=== PATIENT | female | born 1975 | race Caucasian/White ===

== ENCOUNTER 2022-02-16 07:41 | Emergency (ER) | payer OTHER ==
[2022-02-16] MEDS ORDERED: Zofran 4 MG/2 ML VIAL IV ONE (07:55)
[2022-02-16] MEDS ORDERED: Sodium Chloride 0.9% 1000 ML 1,000 ML IV STA (07:55)
--- NOTE | 2022-02-16 08:04 | ERPHSYRPT ---
- History of Present Illness Time Seen by Provider: 02/16/22 08:00 Historian: patient Exam Limitations: no limitations Physician History: Patient is a 46-year-old female who started with nausea vomiting and abdominal pain yesterday. She does have a history of Crohn's disease but states this is not like previous episodes of Crohn's. She has not had diarrhea with this i nfection is only had 2 stools in the last 48 hours. She has vomited 5-6 times. She also reports fever chills and sweats. She has not had the COVID-vaccine her gallbladder and appendix are out. She also has had a resection of about a foot of the small bowel and 7 inches of the colon for her Crohn's disease. Her pain is generalized. Timing/Duration: yesterday Activities at Onset: none Quality: cramping, fullness Abdominal Pain Onset Location: generalized abdomen Pain Radiation: no radiation Severity of Pain-Max: moderate Severity of Pain-Current: moderate Modifying Factors: Improves With: vomiting Associated Symptoms: diaphoresis, fever/chills, nausea, vomiting, No diarrhea Previous symptoms: same symptoms as today Allergies/Adverse Reactions: latex Allergy (Verified 02/16/22 08:03) ustekinumab [From Stelara] Allergy (Verified 02/16/22 08:03) Home Medications: Budesonide [Budesonide EC] 3 mg PO UD 02/16/22 [History] Certolizumab Pegol [Cimzia] 400 mg SQ UD 02/16/22 [History] - Review of Systems Constitutional: Fever, Chills Eyes: No Symptoms Ears, Nose, & Throat: No Symptoms Respiratory: No Cough, No Dyspnea Cardiac: No Chest Pain, No Edema, No Syncope Abdominal/Gastrointestinal: Abdominal Pain, Nausea, Vomiting, No Diarrhea Genitourinary Symptoms: No Dysuria Musculoskeletal: No Back Pain, No Neck Pain Skin: No Rash Neurological: No Dizziness, No Focal Weakness, No Sensory Changes Psychological: No Symptoms Endocrine: No Symptoms All Other Systems: Reviewed and Negative - Nursing Vital Signs Nursing Vital Signs: Initial Vital Signs Temperature 97.4 F 02/16/22 07:45 Pulse Rate 121 H 02/16/22 07:45 Blood Pressure 118/94 02/16/22 07:45 O2 Sat by Pulse Oximetry 99 02/16/22 07:45 Pain Scale Pain Intensity 6 - Physical Exam General Appearance: mild distress, alert Eye Exam: PERRL/EOMI, eyes nml inspection Ears, Nose, Throat Exam: normal ENT inspection, pharynx normal, moist mucous membranes Neck Exam: normal inspection, non-tender, supple, full range of motion Respiratory Exam: normal breath sounds, lungs clear, No respiratory distress Cardiovascular Exam: regular rate/rhythm, normal heart sounds Gastrointestinal/Abdomen Exam: tenderness (Generalized tenderness), distention, guarding, No mass Pelvic Exam: not done Rectal Exam: deferred Back Exam: normal inspection, normal range of motion, No CVA tenderness, No vert ebral tenderness Extremity Exam: normal inspection, normal range of motion, pelvis stable Neurologic Exam: alert, oriented x 3, cooperative, normal mood/affect, nml cerebellar function, sensation nml, No motor deficits Skin Exam: normal color, warm, dry SpO2 Interpretation: normal SpO2: 100 O2 Delivery: Room Air - Course Nursing assessment & vital signs reviewed: Yes EKG Interpreted by Me: RATE (92), Sinus Rhythm, NORMAL AXIS, NORMAL INTERVALS, NORMAL QRS, NORMAL ST-T - Radiology Exams Chest X-ray Interpretation: Negative - CT Exams Abdomen/Pelvis CT Interpretation: Other (Fluid distended small bowel loops with wall thickening and fluid favoring enteritis Crohn's disease also offered her clinical consideration given the patient history diffuse colonic diarrhea.) Ordered Tests: Active Orders 24 hr Category Date Time Status EKG-ER Only STAT Care 02/16/22 07:55 Active IV Insertion STAT Care 02/16/22 07:55 Active ABDOMEN AND PELVIS W/0 CONTRAS [CT] Stat Exams 02/16/22 07:56 Completed CHEST 1 VIEW (PORTABLE) Stat Exams 02/16/22 07:56 Completed AMYLASE Stat Lab 02/16/22 08:02 Completed CBC W DIFF Stat Lab 02/16/22 08:02 Completed CMP Stat Lab 02/16/22 08:02 Completed CULTURE,URINE Stat Lab 02/16/22 08:02 Received HCG,QUALITATIVE URINE Stat Lab 02/16/22 08:02 Completed LIPASE Stat Lab 02/16/22 08:02 Completed Lactic Acid Stat Lab 02/16/22 08:05 Completed Manual Differential NC Stat Lab 02/16/22 08:02 Completed PROTIME WITH INR Stat Lab 02/16/22 08:02 Completed TROPONIN Q3H Lab 02/16/22 08:02 Completed TROPONIN Q3H Lab 02/16/22 11:00 Ordered TROPONIN Q3H Lab 02/16/22 14:00 Ordered TROPONIN Q3H Lab 02/16/22 17:00 Ordered TROPONIN Q3H Lab 02/16/22 20:00 Ordered UA W/RFX CULTURE Stat Lab 02/16/22 08:02 Completed Medication Summary Discontinued Medications Generic Name Dose Route Start Last Admin Trade Name Anna PRN Reason Stop Dose Admin Sodium Chloride 1,000 mls @ 999 mls/hr 02/16/22 07:55 02/16/22 09:08 Sodium Chloride 0.9% 1000 Ml IV 02/16/22 08:55 Infused .Q1H1M STA Infusion Sodium Chloride Confirm 02/16/22 08:05 Sodium Chloride 0.9% 1000 Ml Administered 02/16/22 08:06 Dose 1,000 mls @ ud .ROUTE .STK-MED ONE Ondansetron HCl 4 mg 02/16/22 07:55 02/16/22 08:07 Ondansetron Hcl 4 Mg/2 Ml Vial IV 02/16/22 07:56 4 mg STAT ONE Administration Ondansetron HCl Confirm 02/16/22 08:05 Ondansetron Hcl 4 Mg/2 Ml Vial Administered 02/16/22 08:06 Dose 4 mg .ROUTE .STK-MED ONE Lab/Rad Data: Laboratory Result Diagrams 02/16/22 08:02 02/16/22 08:02 Laboratory Results 02/16/22 02/16/22 02/16/22 Range/Units 08:05 08:02 08:02 WBC (4.0-10.5) x10^3/uL RBC (4.1-5.4) x10^6/uL Hgb (12.0-16.0) g/dL Hct (35-47) % MCV (78-100) fL MCH (26-32) pg MCHC (32-36) g/dL RDW (11.5-14.0) % Plt Count (150-450) x10^3/uL MPV (7.5-11.0) fL PT (9.4-12.5) SECONDS INR (0.8-3.0) Sodium (137-145) mmol/L Potassium (3.5-5.1) mmol/L Chloride (98-107) mmol/L Carbon Dioxide (22-30) mmol/L Anion Gap (5-15) MEQ/L BUN (7-17) mg/dL Creatinine (0.52-1.04) mg/dL Estimated GFR ML/MIN Glucose (74-106) mg/dL Lactic Acid 1.3 (0.4-2.0) Calcium (8.4-10.2) mg/dL Total Bilirubin (0.2-1.3) mg/dL AST (14-36) U/L ALT (0-35) U/L Alkaline Phosphatase (38-126) U/L Troponin I (0.000-0.034) ng/mL Serum Total Protein (6.3-8.2) g/dL Albumin (3.5-5.0) g/dL Amylase (30-110) U/L Lipase (23-300) U/L Urinalys Dipstick Clnc MAIN LAB Urine Color YELLOW (YELLOW) Urine Appearance CLEAR (CLEAR) Urine pH 6.0 (5-6) Ur Specific Anchor 1.025 (1.005-1.025) POC Urine Protein Conf 100 (Negative) Urine Ketones LARGE-80 (NEGATIVE) Urine Nitrite NEGATIVE (NEGATIVE) Urine Bilirubin MODERATE (NEGATIVE) Urine Urobilinogen 1 (0-1) mg/dL Urine Leukocytes NEGATIVE (NEGATIVE) Urine WBC (Auto) 6-10 (0-5) /HPF Urine RBC (Auto) 0-2 (0-2) /HPF U Hyaline Cast (Auto) 3-5 (0-2) /LPF U Epithel Cells (Auto) MANY (FEW) /HPF Urine Bacteria (Auto) RARE (NEGATIVE) /HPF Urine RBC NEGATIVE (0-5) Landen/ul Unidentified Crystals 25-50 (NEGATIVE) /HPF Urine Mucus (Auto) MANY (NEGATIVE) /HPF Ur Culture Indicated? YES Urine Glucose NEGATIVE (NEGATIVE) mg/dL Urine HCG, Qual (Negative) Influenza Type A Ag NEGATIVE (NEGATIVE) Influenza Type B Ag NEGATIVE (NEGATIVE) RSV (PCR) NEGATIVE (Negative) SARS-CoV-2 (PCR) NEGATIVE (NEGATIVE) 02/16/22 02/16/22 02/16/22 Range/Units 08:02 08:02 08:02 WBC (4.0-10.5) x10^3/uL RBC (4.1-5.4) x10^6/uL Hgb (12.0-16.0) g/dL Hct (35-47) % MCV (78-100) fL MCH (26-32) pg MCHC (32-36) g/dL RDW (11.5-14.0) % Plt Count (150-450) x10^3/uL MPV (7.5-11.0) fL PT 10.4 (9.4-12.5) SECONDS INR 0.98 (0.8-3.0) Sodium (137-145) mmol/L Potassium (3.5-5.1) mmol/L Chloride (98-107) mmol/L Carbon Dioxide (22-30) mmol/L Anion Gap (5-15) MEQ/L BUN (7-17) mg/dL Creatinine (0.52-1.04) mg/dL Estimated GFR ML/MIN Glucose (74-106) mg/dL Lactic Acid (0.4-2.0) Calcium (8.4-10.2) mg/dL Total Bilirubin (0.2-1.3) mg/dL AST (14-36) U/L ALT (0-35) U/L Alkaline Phosphatase (38-126) U/L Troponin I < 0.012 (0.000-0.034) ng/mL Serum Total Protein (6.3-8.2) g/dL Albumin (3.5-5.0) g/dL Amylase (30-110) U/L Lipase (23-300) U/L Urinalys Dipstick Clnc Urine Color (YELLOW) Urine Appearance (CLEAR) Urine pH (5-6) Ur Specific Anchor (1.005-1.025) POC Urine Protein Conf (Negative) Urine Ketones (NEGATIVE) Urine Nitrite (NEGATIVE) Urine Bilirubin (NEGATIVE) Urine Urobilinogen (0-1) mg/dL Urine Leukocytes (NEGATIVE) Urine WBC (Auto) (0-5) /HPF Urine RBC (Auto) (0-2) /HPF U Hyaline Cast (Auto) (0-2) /LPF U Epithel Cells (Auto) (FEW) /HPF Urine Bacteria (Auto) (NEGATIVE) /HPF Urine RBC (0-5) Landen/ul Unidentified Crystals (NEGATIVE) /HPF Urine Mucus (Auto) (NEGATIVE) /HPF Ur Culture Indicated? Urine Glucose (NEGATIVE) mg/dL Urine HCG, Qual NEGATIVE (Negative) Influenza Type A Ag (NEGATIVE) Influenza Type B Ag (NEGATIVE) RSV (PCR) (Negative) SARS-CoV-2 (PCR) (NEGATIVE) 02/16/22 02/16/22 Range/Units 08:02 08:02 WBC 15.3 H (4.0-10.5) x10^3/uL RBC 4.65 (4.1-5.4) x10^6/uL Hgb 14.6 (12.0-16.0) g/dL Hct 46.4 (35-47) % MCV 99.8 (78-100) fL MCH 31.4 (26-32) pg MCHC 31.5 L (32-36) g/dL RDW 14.5 H (11.5-14.0) % Plt Count 343 (150-450) x10^3/uL MPV 10.7 (7.5-11.0) fL PT (9.4-12.5) SECONDS INR (0.8-3.0) Sodium 136 L (137-145) mmol/L Potassium 4.4 (3.5-5.1) mmol/L Chloride 100 (98-107) mmol/L Carbon Dioxide 30 (22-30) mmol/L Anion Gap 11.2 (5-15) MEQ/L BUN 11 (7-17) mg/dL Creatinine 0.80 (0.52-1.04) mg/dL Estimated GFR > 60.0 ML/MIN Glucose 114 H (74-106) mg/dL Lactic Acid (0.4-2.0) Calcium 9.7 (8.4-10.2) mg/dL Total Bilirubin 1.20 (0.2-1.3) mg/dL AST 17 (14-36) U/L ALT 13 (0-35) U/L Alkaline Phosphatase 85 (38-126) U/L Troponin I (0.000-0.034) ng/mL Serum Total Protein 7.3 (6.3-8.2) g/dL Albumin 4.0 (3.5-5.0) g/dL Amylase 53 (30-110) U/L Lipase 54 (23-300) U/L Urinalys Dipstick Clnc Urine Color (YELLOW) Urine Appearance (CLEAR) Urine pH (5-6) Ur Specific Anchor (1.005-1.025) POC Urine Protein Conf (Negative) Urine Ketones (NEGATIVE) Urine Nitrite (NEGATIVE) Urine Bilirubin (NEGATIVE) Urine Urobilinogen (0-1) mg/dL Urine Leukocytes (NEGATIVE) Urine WBC (Auto) (0-5) /HPF Urine RBC (Auto) (0-2) /HPF U Hyaline Cast (Auto) (0-2) /LPF U Epithel Cells (Auto) (FEW) /HPF Urine Bacteria (Auto) (NEGATIVE) /HPF Urine RBC (0-5) Landen/ul Unidentified Crystals (NEGATIVE) /HPF Urine Mucus (Auto) (NEGATIVE) /HPF Ur Culture Indicated? Urine Glucose (NEGATIVE) mg/dL Urine HCG, Qual (Negative) Influenza Type A Ag (NEGATIVE) Influenza Type B Ag (NEGATIVE) RSV (PCR) (Negative) SARS-CoV-2 (PCR) (NEGATIVE) - Progress Progress: unchanged - Departure Departure Disposition: Home Clinical Impression: Gastroenteritis Condition: Stable Critical Care Time: No Instructions: Viral Gastroenteritis, Adult (DC) Prescriptions: Ondansetron ODT 4 MG [Zofran Odt 4 mg] 4 mg PO Q6H PRN PRN #10 tablet PRN Reason: Nausea Ciprofloxacin [Cipro 500 MG] 500 mg PO BID #14 tablet
[2022-02-16] MEDS ORDERED: Zofran 4 MG/2 ML VIAL ONE (08:05)
[2022-02-16] MEDS ORDERED: Sodium Chloride 0.9% 1000 ML 1,000 ML ONE (08:05)
[2022-02-16 08:36] LABS: Hematocrit 46.4 % (35-47); Hemoglobin 14.6 g/dL (12.0-16.0); Mean Cell Volume 99.8 fL (78-100); Mean Corpuscular Hemoglobin 31.4 pg (26-32); Mean Corpuscular Hgb Concent. 31.5 g/dL (32-36); Mean Platelet Volume 10.7 fL (7.5-11.0); Platelet Count 343 x10^3/uL (150-450); Red Blood Count 4.65 x10^6/uL (4.1-5.4); Red Cell Distribution Width 14.5 % (11.5-14.0); White Blood Count 15.3 x10^3/uL (4.0-10.5)
[2022-02-16 08:41] LABS: Appearance CLEAR (CLEAR); Bilirubin MODERATE (NEGATIVE); Glucose NEGATIVE (NEGATIVE)
[2022-02-16 08:42] LABS: Ketones LARGE-80 (NEGATIVE); Nitrite NEGATIVE (NEGATIVE); Protein,Urine Dip 100 (Negative); RBC NEGATIVE Ery/ul (0-5); Specific Gravity 1.025 (1.005-1.025); Urobilinogen 1 mg/dL (0-1)
[2022-02-16 08:43] LABS: Dipstick done @ ? MAIN LAB
[2022-02-16 08:48] LABS: Bacteria RARE /HPF (NEGATIVE); Crystals Unidentified 25-50 /HPF (NEGATIVE); Epithelial Cells MANY /HPF (FEW); Mucus MANY /HPF (NEGATIVE); RBC 0-2 /HPF (0-2)
[2022-02-16 08:50] LABS: ALKALINE PHOSPHATASE 85 U/L (38-126); AMYLASE 53 U/L (30-110); ANION GAP 11.2 MEQ/L (5-15); BLOOD UREA NITROGEN 11 mg/dL (7-17); CHLORIDE 100 mmol/L (98-107); Calcium 9.7 mg/dL (8.4-10.2); Carbon Dioxide 30 mmol/L (22-30); EST GLOMERULAR FILTRATION RATE > 60.0 ML/MIN; Glucose 114 mg/dL (74-106); INR 0.98 (0.8-3.0); LIPASE 54 U/L (23-300); PROTIME 10.4 SECONDS (9.4-12.5); Potassium 4.4 mmol/L (3.5-5.1); SGOT/AST 17 U/L (14-36); SGPT/ALT 13 U/L (0-35); SODIUM 136 mmol/L (137-145); Total Protein 7.3 g/dL (6.3-8.2)
[2022-02-16 08:54] LABS: Urine Cultured Indicated? YES
[2022-02-16 09:31] LABS: INFLUENZA A NEGATIVE (NEGATIVE); INFLUENZA B NEGATIVE (NEGATIVE); RESPIRATORY SYNCTIAL VIRUS NEGATIVE (Negative); SARS-CoV-2 Xpert Express NEGATIVE (NEGATIVE)
--- NOTE | 2022-02-16 10:15 | XRAY ---
Indication: Left upper quadrant pain. Comparison: None Single PA chest hyperinflated and clear. Heart not enlarged. Bony thorax intact. Impression: Nonacute hyperinflated chest.
--- NOTE | 2022-02-16 10:15 | XRAY ---
Indication: Left upper quadrant pain 2 days. Nausea and vomiting bile. History of Crohn's Multiple contiguous axial images obtained through abdomen and pelvis without contrast. Comparison: None Lung bases demonstrates minimal dependent atelectasis. No infiltrate or effusion. Heart not enlarged. Noncontrasted stomach and bowel loops appear nonobstructed. Majority small bowel loops are mildly fluid distended up to 3.4 cm with wall thickening and fluid leveling either enteritis versus reported history Crohn's disease. Lesser mild fluid distended colon throughout with fluid leveling favoring diarrhea. No free fluid/air. Appendectomy and cholecystectomy reported. Remaining liver, pancreas, spleen, adrenal glands, kidneys, ureters, bladder, and uterus appear unremarkable for noncontrast exam. Mild scattered aortoiliac calcifications without AAA. Osseous structures intact with small superior L5 Schmorl node. Impression: Fluid distended small bowel loops with wall thickening and fluid leveling favoring enteritis. Crohn's disease also offered for clinical consideration given patient history. Diffuse colonic diarrhea.
[2022-02-16 10:32] VITALS: BP 112/76; PULSE 77; O2SAT 98
[2022-02-16 11:12] LABS: BAND 1 % (0.0-2.0); Basophil 1 % (0.0-1.0); Eosinophil 2 % (0.00-3.0); Lymphocytes 25 % (24-44); Monocyte 3 % (0.0-12.0); Platelet Estimate NORMAL (NORMAL); Total Cells Counted 100
== END 2022-02-16 10:39 | disposition home or self-care (01) ==
LOC: ED 07:41
DX: A08.4 Viral intestinal infection, unspecified (principal); R11.2 Nausea with vomiting, unspecified; R10.84 Generalized abdominal pain; K50.90 Crohn's disease, unspecified, without complications; Z79.899 Other long term (current) drug therapy; Z28.310 Unvaccinated for COVID-19
CPT/HCPCS: 0241U; 36000; 36415; 71045; 74176; 80053; 81015; 81025; 82150; 83605; 83690; 84484; 85025; 85610; 87086; 93005; 96374; 99284; J2405